=== PATIENT | female | born 1940 | race Caucasian/White ===

== ENCOUNTER 2017-02-24 00:31 | Emergency (ER) | payer OTHER, BC ==
[2017-02-24 00:43] VITALS: BP 120/73; PULSE 87; TEMP 98.4; BMI 19.3
--- NOTE | 2017-02-24 01:37 | PDOC ---
History of Present Illness - General Chief Complaint: Pain, Acute Stated Complaint: PULLED OUT BACK Time Seen by Provider: 02/24/17 00:35 - History of Present Illness Initial Comments: This 76-year-old woman with a history of GERD but no other significant past medical history presents with left paraspinal lumbar pain since earlier today. Patient states that she was working around her garden shed when she reached for an object. When she did this, she twisted the left side of her mid back and felt immediate pain. Since then, she has had persistent pain with movement. She did not fall or otherwise impact her back or buttocks. She denies pain in the buttocks or legs. She has had no weakness or numbness/paresthesias in her legs. Patient has a history of muscle spasms in the past. She has an seen in physical therapy previously but not in recent years. She was told several years ago that she might have a herniated disc but has not had any further evaluation or treatment of her Past History - Past Medical History Allergies/Adverse Reactions: Allergies Allergy/AdvReac Type Severity Reaction Status Date / Time codeine Allergy Verified 02/24/17 00:33 Penicillins Allergy Verified 02/24/17 00:32 IVP DYE Allergy Uncoded 02/24/17 00:34 Home Medications: Ambulatory Orders Pantoprazole Sodium [Protonix] 40 mg PO DAILY 02/24/17 Tizanidine HCl [Zanaflex (Nf) -] 2 mg PO BID PRN #10 tablet 02/24/17 GI Disorders: Yes (ACID REFLUX) - Psycho/Social/Smoking Cessation Hx Anxiety: No Suicidal Ideation: No Smoking History: Former smoker Have you smoked in the past 12 months: No Information on smoking cessation initiated: No Hx Alcohol Use: No Drug/Substance Use Hx: No Substance Use Type: None Review of Systems - Review of Systems Able to Perform ROS?: Yes Comments:: 12 point review of systems is negative except for what is noted in the history of present illness *Physical Exam - Vital Signs Last Vital Signs Temp Pulse Resp BP Pulse Ox 98.4 F 87 16 120/73 99 02/24/17 00:37 02/24/17 00:37 02/24/17 00:37 02/24/17 00:37 02/24/17 00:37 - Physical Exam Comments: GENERAL: Elderly female, alert and oriented 3, in moderate distress secondary to intermittent left mid back pain (felt on movement) NECK: Normal range of motion, supple without lymphadenopathy, JVD, or masses. LUNGS: Breath sounds equal, clear to auscultation bilaterally. No wheezes, and no crackles. HEART:Regular rate and rhythm, normal S1 and S2 without murmur, rub or gallop. ABDOMEN:.normal bowel sounds No guarding,tenderness or rebound.No masses No distention. EXTREMITIES: Normal range of motion, no edema. No clubbing or cyanosis. No erythema, or tenderness. NEUROLOGICAL: Cranial nerves II through XII grossly intact. Normal speech. No focal neurological deficits. MUSCULOSKELETAL: Back-left mid back paraspinal muscles mildly tender to palpation; pain reproduced with movement No other tenderness/deformity or *DC/Admit/Observation/Transfer Diagnosis at time of Disposition: Strain of lumbar paraspinal muscle Qualifiers: Encounter type: initial encounter Qualified Code(s): S39.012A - Strain of muscle, fascia and tendon of lower back, initial encounter - Discharge Dispostion Disposition: HOME Condition at time of disposition: Stable - Prescriptions Prescriptions: Tizanidine HCl [Zanaflex (Nf) -] 2 mg PO BID PRN #10 tablet PRN Reason: Muscle Spasms - Referrals Referrals: Freddie Billy MD [Staff Physician] - 1 week - Patient Instructions Printed Discharge Instructions: DI for Back Spasm Additional Instructions: Avoid strenuous activity involving upper body for the next week Ibuprofen/naproxen as needed (take with food) Tizanidine 2 mg up to twice a day as needed for muscle spasms Local warmth to the area of muscle spasm Drink plenty of water Consider using magnesium supplementation (magnesium glycinate or chelated magnesium) Follow-up with spinal orthopedic surgeon () Return to ER if you have persistent severe pain
[2017-02-24] MEDS ORDERED: KETOROLAC TROMETHAMINE 60 MG/2 ML VIAL ONE (01:53)
[2017-02-24] MEDS ORDERED: KETOROLAC TROMETHAMINE 60 MG/2 ML VIAL IM ONE (01:53)
== END 2017-02-24 02:22 | disposition home or self-care (01) ==
LOC: FER 00:31
DX: S39.012A Strain of muscle, fascia and tendon of lower back, initial encounter (principal); X58.XXXA Exposure to other specified factors, initial encounter; Y93.89 Activity, other specified; Y92.9 Unspecified place or not applicable; K21.9 Gastro-esophageal reflux disease without esophagitis; Z87.891 Personal history of nicotine dependence
CPT/HCPCS: 99281-25